=== PATIENT | female | born 1955 | race Caucasian/White ===

== ENCOUNTER → 2016-09-12 | Outpatient (CLI) | payer BC ==
--- NOTE | 2016-09-12 13:02 | REP ---
Chest x-ray: Two views. History: Cough. Comparison chest x-ray is from July 14, 2009. Findings: There are degenerative changes in the thoracic spine. The lungs are symmetrically aerated and clear. Heart size is normal. Pulmonary vasculature is not increased. Impression: No active disease. Signed by Robert Moreno MD 09/12/2016 01:56 P
== END ==
LOC: M WUC 09:42
PROVIDERS: ATTEND Physician Assistant
DX: J02.9 Acute pharyngitis, unspecified (principal); R05 Cough; R50.9 Fever, unspecified

== ENCOUNTER → 2016-09-20 | Outpatient (CLI) | payer BC ==
--- NOTE | 2016-09-20 12:12 | REP ---
Chest two views HISTORY: Cough Comparison: 09/12/2016 The lungs are clear. The heart is normal in size. The pulmonary vasculature is normal in appearance. The bony structure is intact. IMPRESSION: No acute disease. Signed by Kristopher Parker MD 09/20/2016 12:04 P
== END ==
LOC: M WUC 11:44
PROVIDERS: ATTEND Nurse Practitioner Family
DX: R05 Cough (principal)

== ENCOUNTER → 2016-10-17 | Outpatient (CLI) | payer BC ==
--- NOTE | 2016-10-17 14:23 | REP ---
TWO VIEW CHEST: COMPARISON: 09/20/2016. There is no evidence of acute infiltrate. No pleural effusion is seen. The heart is normal in size. The mediastinal silhouette is unremarkable. The visualized osseous structures are intact. There are mild degenerative changes of the spine. IMPRESSION: No acute pulmonary disease. Signed by Thompson Rivera MD 10/17/2016 04:44 P
== END ==
LOC: M WUC 12:27
PROVIDERS: ATTEND Nurse Practitioner Family
DX: J18.9 Pneumonia, unspecified organism (principal)

== ENCOUNTER → 2016-10-28 | Outpatient (REF) | payer BC ==
[2016-10-29 13:39] LABS: CONTROL LINE HPYORI INT CTR LINE PRESENT; CONTROL LINE MONO INT CTR LINE PRESENT
== END ==
LOC: M LAB REF 12:16
PROVIDERS: ATTEND Internal Medicine
DX: R10.9 Unspecified abdominal pain (principal); J30.9 Allergic rhinitis, unspecified; J06.9 Acute upper respiratory infection, unspecified

== ENCOUNTER → 2017-03-28 | Outpatient (REF) | payer BC | LOC: M LAB REF 09:25 | PROVIDERS: ATTEND Physician Assistant | DX: J02.9 Acute pharyngitis, unspecified (principal) ==

== ENCOUNTER → 2017-04-02 | Outpatient (CLI) | payer BC ==
--- NOTE | 2017-04-02 18:44 | REP ---
CHEST, TWO VIEWS: COMPARISON: 10/17/2016 There is no evidence of acute infiltrate. No pleural effusion is seen. The heart is normal in size. The mediastinal silhouette is unremarkable. The visualized osseous structures are intact. There is calcification of the thoracic aorta. There are degenerative changes of the spine. IMPRESSION: No acute pulmonary disease. Signed by Thompson Rivera MD 04/03/2017 09:01 A
== END ==
LOC: M WUC 16:00
PROVIDERS: ATTEND Nurse Practitioner Family
DX: R05 Cough (principal)

== ENCOUNTER → 2017-06-23 | Outpatient (CLI) | payer BC ==
[2017-06-23 20:39] LABS: BASO % 0.7 % (0.0-1.0); EOS # 0.1 10^3/uL (0.0-0.50); EOS % 0.9 % (0.0-3.0); IMMATURE GRANULOCYTE % 0.2 % (0-0); LYMPH # 2.4 10^3/uL (1.5-4.5); LYMPH % 43.7 % (24.0-44.0); MEAN CORPUSCULAR HEMOGLOBIN 30.6 pg (27.0-33.0); MEAN CORPUSCULAR HGB CONC 33.3 g/dl (32.0-36.5); MEAN CORPUSCULAR VOLUME 91.9 fl (80.0-96.0); MONO # 0.4 10^3/uL (0.0-0.8); MONO % 7.4 % (0.0-5.0); NEUTROPHILS # 2.6 10^3/uL (1.8-7.7); NEUTROPHILS % 47.1 % (36.0-66.0); PLATELET COUNT, AUTOMATED 266 10^3/uL (150-450); RED CELL DISTRIBUTION WIDTH 11.8 % (11.5-14.5); WHITE BLOOD COUNT 5.5 10^3/uL (4.0-10.0)
[2017-06-23 21:38] LABS: IMMUNOGLOBULIN G 1050 MG/DL (681-1648); IMMUNOGLOBULIN M 202 MG/DL (40-230)
== END ==
LOC: M WUC 16:31
PROVIDERS: ATTEND Allergy & Immunology Allergy
DX: D84.9 Immunodeficiency, unspecified (principal); J31.0 Chronic rhinitis

== ENCOUNTER 2017-07-11 06:11 | Emergency (ER) | payer BC ==
[~2017-07-11] VITALS: Ht 172.7 cm; Wt 139.1 kg
[2017-07-11] MEDS ORDERED: MUCI30TA5 PO (06:41)
[2017-07-11] MEDS ORDERED: ACIDTAB7 PO (06:41)
[2017-07-11] MEDS ORDERED: OCUVTAB PO (06:41)
[2017-07-11] MEDS ORDERED: ASTE0.15 (06:41)
[2017-07-11] MEDS ORDERED: ACET-683 PO (06:41)
[2017-07-11] MEDS ORDERED: OMEP20TA PO (06:41)
[2017-07-11] MEDS ORDERED: VITA-121 PO (06:41)
[2017-07-11] MEDS ORDERED: OSTETAB PO (06:41)
--- NOTE | 2017-07-11 07:40 | REPUSA ---
CLINICAL HISTORY: Facial heaviness. TECHNIQUE: Multiple axial brain CT scan sections were obtained from base to vertex without contrast a dministration. COMMENTS: The study shows normal configuration of sella turcica. There are no intra or extra-axial collections. There is no mass effect or midline shift. There is no evidence of hematoma formation. No hydrocephal us is present. No abnormal calcifications are noted. No significant abnormalities are seen either in the posterior fossa or supratentorial compartment. The sinuses and mastoid air cells are patent. IMPRESSION: No evidence of acute intracranial pathology. Thank you for your kind referral of this patient.
[2017-07-11 08:19] VITALS: BP 149/74
== END 2017-07-11 08:19 | disposition home or self-care (01) ==
LOC: M ED 06:11
DX: J32.9 Chronic sinusitis, unspecified (principal); R51 Headache; Z79.899 Other long term (current) drug therapy; Z88.0 Allergy status to penicillin; Z88.1 Allergy status to other antibiotic agents; Z88.8 Allergy status to other drugs, medicaments and biological substances

== ENCOUNTER → 2017-08-17 | Outpatient (REF) | payer BC | LOC: M LAB REF 09:11 | DX: J02.9 Acute pharyngitis, unspecified (principal) | CPT/HCPCS: 87081 ==

== ENCOUNTER → 2017-09-17 | Outpatient (CLI) | payer BC ==
[~2017-09-17] MED LIST: METHACHOLINE KIT (J7674) INH
== END ==
LOC: M CARPUL 12:31
DX: R05 Cough (principal)

== ENCOUNTER 2017-10-24 14:36 | Emergency (ER) | payer BC ==
[2017-10-24] MEDS: METHOCARBAMOL 500 MG TAB PO (14:39)
[2017-10-24] MEDS: NORCO, ANEXSIA 5/325MG TABLET (HYDROcodone/ACETAMINOPHEN) PO (14:40)
== END 2017-10-24 14:49 | disposition home or self-care (01) ==
LOC: M ED 14:36
DX: M54.42 Lumbago with sciatica, left side (principal); G89.29 Other chronic pain; I10 Essential (primary) hypertension; Z79.899 Other long term (current) drug therapy; Z98.890 Other specified postprocedural states; Z88.8 Allergy status to other drugs, medicaments and biological substances; Z88.1 Allergy status to other antibiotic agents; Z88.0 Allergy status to penicillin
CPT/HCPCS: 99282

== ENCOUNTER → 2018-08-27 | Outpatient (CLI) | payer BC ==
[~2018-08-27] MED LIST changes: +ACET-683 PO; +ACIDTAB7 PO; +ASTE0.15; +CALC1TAB74 PO; -METHACHOLINE KIT (J7674) INH; +MUCI30TA5 PO; +NORCOTAB PO; +OCUVTAB PO; +OMEP20TA PO; +OMEP40CA2 PO; +OSTETAB PO; +RANI150C PO; +ROBA500T PO; +VALSARTAN-HCTZ PO; +VITA-121 PO; +ZYRT10CA5 PO
--- NOTE | 2018-08-27 12:15 | REP ---
Chest two views HISTORY: Shortness of breath Comparison: 04/02/2017 The lungs are clear. The heart is normal in size. The pulmonary vasculature is normal in appearance. The bony structure is intact. IMPRESSION: No acute disease. Electronically Signed by Kristopher Parker MD 08/27/2018 12:03 P
== END ==
LOC: M WUC 11:24
PROVIDERS: ATTEND Nurse Practitioner Family
DX: R06.02 Shortness of breath (principal)

== ENCOUNTER → 2020-02-24 | Outpatient (CLI) | payer BC ==
[~2020-02-24] MED LIST changes: +HYDR-3715 PO; -NORCOTAB PO; +OMEP-358 PO; -OMEP20TA PO; -OMEP40CA2 PO; +OMEP40CA97 PO
--- NOTE | 2020-02-24 17:51 | REP ---
REASON FOR EXAM: Dyspnea. COMPARISON: Multiple, all reviewed, the latest 08/27/2018. The lung harg[place] are clear and unchanged. The heart is not enlarged and the pleural angles are sharp. The osseous structures stable and intact. There is evidence of mildly enlarged but stable-appearing pulmonary arteries. IMPRESSION: No acute cardiopulmonary disease. Findings as described above.
== END ==
LOC: M WUC 14:41
PROVIDERS: ATTEND Internal Medicine
DX: R06.02 Shortness of breath (principal)

== ENCOUNTER → 2021-03-23 | Outpatient (CLI) | payer MEDICARE ==
[~2021-03-23] MED LIST changes: +OMEP40CA4 PO; -OMEP40CA97 PO
--- NOTE | 2021-03-23 10:35 | REP ---
INDICATION: ACUTE BRONCHITIS. COMPARISON: 02/24/2020 TECHNIQUE: PA and lateral views FINDINGS: The lungs are clear. The heart is not enlarged. There is no failure. The mediastinum, pleural surfaces and bony structures unremarkable. No interval change with the previous study. IMPRESSION: No active process. <Electronically signed by Alexi Mesa > 03/23/21 [id number]
== END ==
LOC: M WUC 09:22
PROVIDERS: ATTEND Physician Assistant
DX: J20.9 Acute bronchitis, unspecified (principal)

== ENCOUNTER → 2021-06-28 | Outpatient (CLI) | payer MEDICARE ==
--- NOTE | 2021-06-28 15:15 | REPMRS ---
Patient History The patient states she had a clinical breast exam in April 2021. Patient is postmenopausal. Family history of breast cancer in maternal cousin, breast cancer at age 55 in sister, pancreatic cancer at age 75 in paternal aunt. Patient states no breast complaints today. Patient has signed MRS History Sheet. Digital Woman Screen Mammo: June 28, 2021 - Exam #: [id number] Bilateral CC and MLO view(s) were taken. Technologist: Georgette Ortez, Technologist Prior study comparison: May 19, 2020, bilateral digital mammo screening bilat, performed at [facility]. April 28, 2019, bilateral digital mammo screening bilat, performed at [facility]. April 21, 2013, left breast uni digital dianostic mammo, performed at [facility] ([facility] April 02, 2013, left breast digital mammo diagnostic unilateral, performed at [facility]. FINDINGS: The breast tissue is almost entirely fat. Screening. Digital screening (2D) mammography was performed bilaterally in the CC and MLO projections. Additionally, breast tomosynthesis (3D mammography) was performed bilaterally in the CC and MLO projections. Todays exam was compared to the prior exam/exams. By history, the patient has no complaints of a palpable breast abnormality or other significant breast complaints. The Volpara volumetric breast density category is A, the breasts are almost entirely fatty. The breasts are unchanged in size and shape. There are no shari-soft tissue densities or spiculated masses. There is no internal architectural distortion. There are no suspicious shari-calcific clusters. Skin thickening or nipple retraction is not present. IMPRESSION: BI-RADS Category 2- Benign Findings. There is no evidence of malignant alteration of the breasts. Followup examination recommended in one year. The lifetime Tyrer-Cuzick score is 16.8% This mammogram was read with the assistance of [employer],an FDA approved computer aided detection system for mammography. Negative x-ray reports should not delay surgical consultation if a dominant or clinically suspicious mass is present. Not all breast cancers can be identified by mammography. Therefore, we recommend that you continue to perform regular breast self-examination and physical examination and then promptly contact your physician of any concerns or changes. Adenosis and dense breasts may obscure an underlying neoplasm. No significant changes when compared with prior studies. Assessment: BI-RADS/ACR category 2 mammogram. Benign Findings. Recommendation Routine screening mammogram of both breasts in 1 year. Electronically Signed By: Marcos Jose MD 06/28/21 [id number]
--- NOTE | 2021-07-08 21:30 | DEXAMM ---
INDICATION: SCREENING FOR OSTEOPOROSIS. COMPARISON: 04/24/2018 TECHNIQUE: Bone density was measured using dual-energy x-ray absorptionmetry (DEXA). FINDINGS: AP SPINE L1-L4 BMD 1.41 g/cm2 Young Adult T-Score 1.8 Age Matched Z-Score 3.4. LT FEMUR, TOTAL BMD 0.96 g/cm2 Young Adult T-Score -0.3 Age Matched Z-Score 0.9. LT NECK BMD 0.95 g/cm2 Young Adult T-Score -0.6 Age Matched Z-Score 0.9. RT FEMUR, TOTAL BMD 0.89 g/cm2 Young Adult T-Score -1.0 Age Matched Z-Score 0.2. RT NECK BMD 0.82 g/cm2 Young Adult T-Score -1.6 Age Matched Z-Score -0.1. IMPRESSION: There is normal bone density of the spine. There is normal bone density of the left hip. There is normal bone density of the right hip. The density of the spine has decreased by 3.8% since the initial exam on 04/24/2018. The density of the left hip has decreased by 3.6% since initial exam on 04/24/2018. The density of the right hip has decreased by 7.8% since the initial exam on 04/24/2018. FOLLOW-UP: Recommendation for the next bone density exam: 2 years. <Electronically signed by Parker Ibrahim > 07/08/21 [id number]
== END ==
LOC: M WHC 10:56
PROVIDERS: ATTEND Obstetrics & Gynecology
DX: Z13.820 Encounter for screening for osteoporosis (principal); Z12.31 Encounter for screening mammogram for malignant neoplasm of breast; M85.9 Disorder of bone density and structure, unspecified; Z78.0 Asymptomatic menopausal state

== ENCOUNTER → 2022-02-06 | Outpatient (CLI) | payer MEDICARE | LOC: M WUC 11:32 | PROVIDERS: ATTEND Internal Medicine | DX: M85.9 Disorder of bone density and structure, unspecified (principal); M51.9 Unspecified thoracic, thoracolumbar and lumbosacral intervertebral disc disorder ==

== ENCOUNTER → 2022-06-21 | Outpatient (CLI) | payer MEDICARE | LOC: M PLAIMG 12:39 | PROVIDERS: ATTEND Physician Assistant | DX: M19.011 Primary osteoarthritis, right shoulder (principal) ==

== ENCOUNTER → 2022-07-01 | Outpatient (CLI) | payer MEDICARE | LOC: M WHC 09:53 | PROVIDERS: ATTEND Obstetrics & Gynecology | DX: Z12.31 Encounter for screening mammogram for malignant neoplasm of breast (principal) ==

== ENCOUNTER → 2023-07-07 | Outpatient (CLI) | payer MEDICARE | LOC: M WHC 14:14 | PROVIDERS: ATTEND Obstetrics & Gynecology | DX: Z12.31 Encounter for screening mammogram for malignant neoplasm of breast (principal) ==

== ENCOUNTER → 2024-07-21 | Outpatient (CLI) | payer MEDICARE | LOC: M WHC 14:28 | PROVIDERS: ATTEND Obstetrics & Gynecology | DX: Z12.31 Encounter for screening mammogram for malignant neoplasm of breast (principal); M81.0 Age-related osteoporosis without current pathological fracture ==